=== PATIENT | male | born 1955 ===

== ENCOUNTER → 2020-03-08 20:36 | Outpatient (CLI) | payer SELFPAY ==
[2020-03-08 21:03] LABS: ALKALINE PHOSPHATASE 124 U/L (30-120); ALT (SGPT) 46 U/L (10-68); BILIRUBIN - TOTAL 0.84 mg/dL (0.2-1.3); C-REACTIVE PROTEIN 5.2 mg/dL (0.0-0.9); CALCIUM 8.1 mg/dL (8.5-10.1); CARBON DIOXIDE 29.3 mmol/L (21.0-32.0); CHLORIDE - SERUM 100 mmol/L (98-107); CREATININE - SERUM 0.9 mg/dL (0.6-1.3); HEMATOCRIT 33.4 % (42.0-54.0); HEMOGLOBIN 10.1 g/dL (13.5-17.5); MCH 32.1 pg (26.0-34.0); MCHC 30.2 g/dL (31.0-37.0); PLATELET COUNT 99 10x3/uL (130-400); PROTEIN - SERUM 6.9 g/dL (6.4-8.2); RBC 3.15 10x6/uL (4.20-6.10); RDW 25.2 % (11.5-14.5); SODIUM 139 mmol/L (136-145); UREA NITROGEN 12 mg/dL (7-18); eGFR NON AFRICAN AMERICAN > 90 mL/min (90-120)
[2020-03-08 21:04] LABS: CALC OSMOLALITY 274 mosm/kg (275-300); GLUCOSE 48 mg/dL (74-106)
[2020-03-08 21:07] LABS: POTASSIUM - SERUM 2.7 mmol/L (3.5-5.1)
[2020-03-08 22:17] LABS: ERYTHROCYTE SEDIMENTATION RATE 36 mm/hr (0-20)
[2020-03-08 22:31] LABS: EOSINOPHILS 2 % (0-7); LYMPHOCYTES 68 % (15-50); MONOCYTES 2 % (2-11); NEUTROPHILS 28 % (40-80); PLATELET ESTIMATE DECREASED
== END | disposition home or self-care (01) ==
LOC: D.LABREF 20:36
PROVIDERS: ATTEND Family Medicine
DX: T84.53XA Infection and inflammatory reaction due to internal right knee prosthesis, initial encounter (principal); B96.20 Unspecified Escherichia coli [E. coli] as the cause of diseases classified elsewhere; N39.0 Urinary tract infection, site not specified; C93.10 Chronic myelomonocytic leukemia not having achieved remission